=== PATIENT | male | born 1950 | race Caucasian/White ===

== ENCOUNTER 2018-01-05 15:01 | Outpatient (CLI) | payer MEDICARE ==
[~2018-01-05 15:01] MED LIST: ISOVUE-370 76%-LOCM 1 ML ONE
== END 2018-01-05 15:02 | disposition home or self-care (01) ==
LOC: BICCT 15:01
PROVIDERS: ATTEND Nurse Practitioner Family
DX: K57.30 Diverticulosis of large intestine without perforation or abscess without bleeding (principal); K80.20 Calculus of gallbladder without cholecystitis without obstruction; K57.32 Diverticulitis of large intestine without perforation or abscess without bleeding
CPT/HCPCS: 74177

== ENCOUNTER 2018-07-12 08:25 | Outpatient (CLI) | payer MEDICARE ==
--- NOTE | 2018-07-12 11:19 | CT ---
CT ABDOMEN AND PELVIS WITH CONTRAST: Technique: Multiple contiguous axial images were obtained through the abdomen and pelvis with IV enha ncement. Indications: Abdominal pain, diverticulosis. History of diverticulitis. FINDINGS: Lung bases are clear. Liver, spleen, pancreas unremarkable. There is a peripherally calcified gallstone in the neck of the gallbladder measuring approximately 1.0 cm. No evidence of biliary duct dilatation. Adrenal glands normal. Kidneys are unremarkable. 1.0 cm cyst anterior mid right renal cortex. Urinary bladder unremarkable. Small bowel loops normal caliber. Appendix appears unremarkable. Diverticulosis of the left colon and sigmoid colon. The left colon is nondistended and not well evalu ated. No CT evidence of significant diverticulitis apparent at this time. Aorta normal caliber. No ad enopathy. IMPRESSION: 1. Extensive diverticulosis in the left colon and sigmoid colon. No CT evidence of significant divert iculitis. 2. Cholelithiasis. POS: JESSICA
[2018-07-12] MEDS ORDERED: Iopamidol 370 76% 100 ML VIAL ONE (13:13)
== END 2018-07-12 08:26 | disposition home or self-care (01) ==
LOC: BICCT 08:25
PROVIDERS: ATTEND Nurse Practitioner Family
DX: K57.30 Diverticulosis of large intestine without perforation or abscess without bleeding (principal); K80.20 Calculus of gallbladder without cholecystitis without obstruction
CPT/HCPCS: 74177

== ENCOUNTER 2018-11-16 05:44 | Day surgery (SDC) | payer MEDICARE ==
[2018-11-15 09:03] VITALS: BMI 24.3
[2018-11-16] MEDS ORDERED: Lidocaine 1% w/Epinephrine 1:200K 30 ML VIAL ONE (06:27)
[2018-11-16 06:50] LABS: Hemoglobin 12.7 g/dL (14.0-18.0); Mean Corpuscular HGB CONC 32.1 g/dL (32.0-36.0); Mean Corpuscular Hemoglobin 20.4 pg (27.0-31.0); Mean Corpuscular Volume 63.6 fL (78.0-98.0); Mean Platelet Volume 10.7 fL (7.4-10.4); Platelet Count 195 thou/uL (130-400); RBC Distribution Width 14.4 % (11.5-14.5); Red Blood Cell (RBC) Count 6.23 mill/uL (4.70-6.10)
[2018-11-16 06:53] LABS: INR-International Normal Ratio 1.1; PTT 28.4 SEC (22.9-36.1); Prothrombin Time 14.2 SEC (12.0-14.7)
[2018-11-16 07:15] LABS: Anion Gap 15 mmol/L (10-20); BUN (Urea Nitrogen) 12 mg/dL (8.4-25.7); Calc. Creatinine Clearance 76 mL/min (70-130); Calcium 10.2 mg/dL (7.8-10.44); Carbon Dioxide 27 mmol/L (23-31); Chloride 104 mmol/L (98-107); Estimated GFR-MDRD 76; Glucose 142 mg/dL (80-115); Potassium 4.4 mmol/L (3.5-5.1); Sodium 142 mmol/L (136-145)
[2018-11-16] MEDS ORDERED: Fentanyl 100 MCG/2 ML VIAL ONE (07:20)
[2018-11-16] MEDS ORDERED: methylPREDNISolone Acetate 40 mg/ml Vial ONE (07:25)
--- NOTE | 2018-11-16 13:52 | OP ---
DATE OF PROCEDURE: 11/16/2018 PREOPERATIVE DIAGNOSES: 1. Right thumb trigger finger. 2. Right ring finger trigger finger. 3. Right medial epicondylitis. POSTOPERATIVE DIAGNOSES: 1. Right thumb trigger finger. 2. Right ring finger trigger finger. 3. Right medial epicondylitis. PROCEDURES PERFORMED: 1. Right thumb trigger finger release. 2. Right ring finger trigger finger release. 3. Medial epicondylitis injection. N[employer] CLUB MANAGER: None. ANESTHESIOLOGIST: Matthew Morfin MD ANESTHESIA: The patient received a LMA and received 10 mL of lidocaine, 5 mL in thumb and ring finger as well as 2 mL and 40 mg of Depo-Medrol in his medial epicondyle. ANTIBIOTICS: Ancef 2 g. TOURNIQUET TIME: 20 minutes at 250 mmHg. ESTIMATED BLOOD LOSS: 10 mL. COMPLICATIONS: None. HISTORY OF PRESENT ILLNESS: Mr. Sawyer is a 68-year-old male, diabetic, who is right-hand dominant. The patient has had multiple injections in his hand and ultimately desired to have a release. I discussed with the patient the risks and benefits of the ring finger and trigger finger release to include pain, scar, bleeding, damage to vital structures, nerves, arteries, and tendons, need for further surgeries, infection, loss of vital structures, loss of life or limb. I discussed injecting his elbow at that time. He understood the risks and benefits of the procedure and elected to proceed. DESCRIPTION OF PROCEDURE: Time-out was performed designating the patient's right upper extremity as the operative site based on site, consents and marking incision made over the patient's thumb at the flexion crease right over the A1 katja down, dissection was bluntly made down with scissors down to the katja. It was completely released. I was able to pull up and felt no popping or snapping. I made sure to stay away from the oblique ligament. I made sure that I completely released proximally and distally. I protected the nerve through the course. I then washed, closed with 4-0 nylon, injected 5 mL after the completion of procedure. I then moved to the index finger, made incision to the skin. There was some significant scarring like from the previous injections. I bluntly dissected down to the patient's tendon. I found the A1 katja, which I completely released proximally and distally and ensured pulled the tendon and the wound and to ensure there was complete release. We then closed with 4-0 nylon the skin incision. Injected 5 mL of lidocaine, let the tourniquet down after 20 minutes. I then injected 40 mg of Depo-Medrol and 2 mL of lidocaine medial epicondyle. The patient will follow up in about 10 to 14 days. Suture removal, wound dressing in 2 to 3 days and follow up me at that time. Job ID: [id number]
[2018-11-16] MEDS ORDERED: Lidocaine 1% PF 5 ML VIAL ONE (16:47)
[2018-11-16] MEDS ORDERED: Dexamethasone 20 MG/5 ML VIAL ONE (16:47)
[2018-11-16] MEDS ORDERED: Ondansetron PF 4 MG/2 ML Vial ONE (16:47)
[2018-11-16] MEDS ORDERED: PROPOFOL 200 MG/20 ML VIAL ONE (16:47)
--- NOTE | 2018-11-16 19:04 | EKG ---
Test Reason : PREOP Blood Pressure : / mmHG Vent. Rate : 066 BPM Atrial Rate : 066 BPM P-R Int : 168 ms QRS Dur : 100 ms QT Int : 412 ms P-R-T Axes : 004 038 031 degrees QTc Int : 431 ms Normal sinus rhythm Possible Inferior infarct (cited on or before 10-FEB-2016) Abnormal ECG When compared with ECG of 10-FEB-2016 17:23, Vent. rate has decreased BY 37 BPM Criteria for Anterior infarct are no longer Present Confirmed by DR. Bobby COTTER ([id number]) on 11/16/2018 7:04:10 PM Referred By: GAVI Confirmed By:DR. Bobby COTTER
== END 2018-11-16 09:30 | disposition home or self-care (01) ==
LOC: SDC 05:44
PROVIDERS: ATTEND Orthopaedic Surgery
PROC: 0LN70ZZ Release Right Hand Tendon, Open Approach (ICD-10-PCS; principal; 2018-11-16)
PROC: 0LN70ZZ Release Right Hand Tendon, Open Approach (ICD-10-PCS; 2018-11-16)
PROC: 0R9L3ZZ Drainage of Right Elbow Joint, Percutaneous Approach (ICD-10-PCS; 2018-11-16)
DX: M65.311 Trigger thumb, right thumb (principal); M65.341 Trigger finger, right ring finger; M77.01 Medial epicondylitis, right elbow; E11.9 Type 2 diabetes mellitus without complications; I10 Essential (primary) hypertension; K21.9 Gastro-esophageal reflux disease without esophagitis; M16.11 Unilateral primary osteoarthritis, right hip; Z87.891 Personal history of nicotine dependence; Z79.84 Long term (current) use of oral hypoglycemic drugs; Z79.899 Other long term (current) drug therapy
CPT/HCPCS: 80048; 85027; 85610; 85730; 93005; 93010; J0690; J1030; J1100; J2001; J2405; J2704; J3010

== ENCOUNTER 2019-03-29 11:26 | Outpatient (CLI) | payer MEDICARE ==
--- NOTE | 2019-03-29 13:36 | CT ---
CT Abdomen Pelvis W Con HISTORY: Abdomen pain. Diverticulitis. COMPARISON: 07/12/2018 study. FINDINGS: The lung bases are clear. The liver shows some mild fatty change. The spleen and pancreas regions are unremarkable. A gallstone is again noted. Right and left adrenal glands and right and left kidneys are normal in size. A small hypodensity invo lving the right and left kidneys are most compatible with small cyst. There is no significant periaortic or mesenteric adenopathy. The appendix is retrocecal in location and normal in size. Colonic diverticulosis is noted changes are more severe in the descending but no evidence for diverti culitis no free fluid pelvic lymphadenopathy or mass. There are arthritic changes of the spine. IMPRESSION: 1. Gallstones. 2. Colonic diverticulosis without definite inflammatory change.
[2019-03-29] MEDS ORDERED: Iopamidol 370 76% 100 ML VIAL ONE (18:16)
== END 2019-03-29 11:27 | disposition home or self-care (01) ==
LOC: CT 11:26
PROVIDERS: ATTEND Nurse Practitioner Family
DX: E11.65 Type 2 diabetes mellitus with hyperglycemia (principal); K57.30 Diverticulosis of large intestine without perforation or abscess without bleeding; E78.5 Hyperlipidemia, unspecified; D56.3 Thalassemia minor; D64.9 Anemia, unspecified; M19.90 Unspecified osteoarthritis, unspecified site; M25.50 Pain in unspecified joint; E11.22 Type 2 diabetes mellitus with diabetic chronic kidney disease; I12.9 Hypertensive chronic kidney disease with stage 1 through stage 4 chronic kidney disease, or unspecified chronic kidney disease; N18.3 Chronic kidney disease, stage 3 (moderate); K80.80 Other cholelithiasis without obstruction
CPT/HCPCS: 36415; 74177; 80053; 80061; 81003; 82043; 82150; 83036; 83690; 85025; 85060; Q9967

== ENCOUNTER 2021-10-22 07:59 | Outpatient (CLI) | payer MEDICARE | END 2021-10-22 08:00 | disposition home or self-care (01) | LOC: TBSIIMAG 07:59 | PROVIDERS: ATTEND Anesthesiology Pain Medicine | DX: M47.26 Other spondylosis with radiculopathy, lumbar region (principal); M51.16 Intervertebral disc disorders with radiculopathy, lumbar region | CPT/HCPCS: 72100; 72148 ==

== ENCOUNTER 2023-01-13 09:46 | Outpatient (CLI) | payer MEDICARE | END 2023-01-13 09:47 | disposition home or self-care (01) | LOC: RAD 09:46 | PROVIDERS: ATTEND Nurse Practitioner Family | DX: R06.02 Shortness of breath (principal) | CPT/HCPCS: 71046 ==

== ENCOUNTER 2023-03-25 09:08 | Emergency (ER) | payer MEDICARE ==
[2023-03-25 09:42] LABS: #Monocytes 1.3 thou/uL (0.11-0.59); #Neutrophils 11.3 thou/uL (1.40-6.50); %Basophils 0.2 % (0.0-1.0); %Lymphocytes 5.1 % (21.0-51.0); %Monocytes 9.9 % (0.0-10.0); %Neutrophils 84.1 % (42.0-75.0); Hematocrit 39.5 % (42.0-52.0); Hemoglobin 12.4 g/dL (14.0-18.0); Mean Corpuscular HGB CONC 31.4 g/dL (32.0-36.0); Mean Corpuscular Hemoglobin 19.5 pg (27.0-31.0); Mean Corpuscular Volume 62.1 fl (78.0-98.0); Mean Platelet Volume 10.2 fL (7.4-10.4); Platelet Count 161 10x3/uL (130-400); RBC Distribution Width 17.3 % (11.5-14.5); Red Blood Cell (RBC) Count 6.36 mill/uL (4.70-6.10); White Blood Cell (WBC) Count 13.4 10x3/uL (4.8-10.8)
[2023-03-25 10:12] LABS: ALT (SGPT) 16 U/L (8-55); AST (SGOT) 27 U/L (5-34); Albumin 4.4 g/dL (3.4-4.8); Alkaline Phosphatase 84 U/L (40-110); Anion Gap 18 mmol/L (10-20); BUN (Urea Nitrogen) 19 mg/dL (8.4-25.7); Bilirubin, Total 0.7 mg/dL (0.2-1.2); Calc. Creatinine Clearance 0 mL/min (70-130); Calcium 9.2 mg/dL (7.8-10.44); Carbon Dioxide 22 mmol/L (23-31); Chloride 96 mmol/L (98-107); Estimated GFR 52; Globulin 2.8 g/dL (2.4-3.5); Glucose 321 mg/dL (83-110); Potassium 4.1 mmol/L (3.5-5.1); Protein, Total 7.2 g/dL (5.8-8.1); Sodium 132 mmol/L (136-145)
[2023-03-25 10:13] LABS: Bacteria/HPF 1+ HPF (None Seen); Bilirubin Negative (Negative); Blood, Urine Trace (Negative); CAUTI Indications for Culture Acute Hematuria; Clarity Clear (Clear); Glucose, Urine (Dipstick) 100 mg/dL (Negative); Ketone, Urine 20 mg/dL (Negative); Leukocyte Negative Leu/uL (Negative); Nitrite Negative (Negative); Protein, Urine (Dipstick) 50 mg/dL (Neg-Trace); RBC/HPF 0-3 HPF (0-3); Specific Gravity, Urine 1.019 (1.002-1.036); Squamous Epithelial 0-3 HPF (0-3); Urobilinogen Normal mg/dL (Less than 2); WBC/HPF 0-3 HPF (0-3); pH, Urine 5.5 (5.0-9.0)
[2023-03-25 10:14] LABS: Urine Culture Reflex No No
[2023-03-25] MEDS ORDERED: cefTRIAXone (ROCEPHIN) 2 GM VIAL ONE (10:14)
[2023-03-25] MEDS ORDERED: Azithromycin 500 MG VIAL ONE (10:14)
[2023-03-25 10:18] LABS: Troponin I Less than 0.010 ng/mL (< 0.028)
[2023-03-25 10:27] LABS: SARS-CoV-2 NAA Rapid Test DETECTED (NotDetected)
== END 2023-03-25 14:13 | disposition home or self-care (01) ==
LOC: ERS 09:08
DX: U07.1 COVID-19 (principal); S09.90XA Unspecified injury of head, initial encounter; R55 Syncope and collapse; E11.9 Type 2 diabetes mellitus without complications; E78.5 Hyperlipidemia, unspecified; I10 Essential (primary) hypertension; W18.30XA Fall on same level, unspecified, initial encounter
CPT/HCPCS: 0240U; 70450; 71045; 80053; 81001; 83605; 83880; 84484; 85025; 87040; 87081; 87430; 93005; 94760; 96361; 96365; 96367; 99284; J0456; J0696